=== PATIENT | male | born 1995 | race Asian ===

== ENCOUNTER 2018-02-17 12:36 | Emergency (ER) | payer MEDICAID, OTHER ==
[2018-02-17 12:54] VITALS: BP 125/82
[2018-02-17 13:36] LABS: BILIRUBIN,URINE NEGATIVE (NEGATIVE); GLUCOSE, URINE (UA) NEGATIVE (NEGATIVE); KETONES,URINE (UA) NEGATIVE (NEGATIVE); LEUKOCYTE ESTERASE, URINE NEGATIVE (NEGATIVE); NITRITE,URINE NEGATIVE (NEGATIVE); OCCULT BLOOD,URINE NEGATIVE (NEGATIVE); PROTEIN,URINE NEGATIVE (NEGATIVE); UROBILINOGEN,URINE 0.2 (NORMAL) E.U./dL (NORMAL)
[2018-02-17 13:47] LABS: CLARITY,URINE CLOUDY (CLEAR)
[2018-02-17 13:52] LABS: BACTERIA,URINE Rare /HPF (None Seen); RBC,URINE 0-5 /HPF (0-5); SQUAMOUS EPITHELIAL CELL,UR RARE Squamous (<= Few)
[2018-02-17 13:53] LABS: AMORPHOUS SEDIMENT,UR Moderate /LPF
[2018-02-17 15:10] LABS: BASOPHILS % (AUTO) 0.5 %; EOSINOPHILS # (AUTO) 0.1 10^3/uL (0.0-0.7); EOSINOPHILS % (AUTO) 1.7 %; HGB - HEMOGLOBIN 15.4 g/dL (14.0-18.0); LYMPHOCYTES # (AUTO) 2.9 10^3/uL (1.5-3.5); LYMPHOCYTES % (AUTO) 34.1 %; MEAN CORPUSCULAR HEMOGLOBIN 29.9 pg (27.0-31.0); MEAN CORPUSCULAR VOLUME 85.4 fL (80.0-94.0); MEAN PLATELET VOLUME 9.2 fL (7.4-11.4); MONOCYTES # (AUTO) 0.5 10^3/uL (0.0-1.0); MONOCYTES % (AUTO) 6.4 %; NEUTROPHILS # (AUTO) 4.8 10^3/uL (1.5-6.6); NEUTROPHILS % (AUTO) 57.3 %; PLT - PLATELET COUNT 174 10^3/uL (130-450); RED BLOOD COUNT 5.16 10^6/uL (4.70-6.10); RED CELL DISTRIBUTION WIDTH 12.3 % (12.0-15.0); WHITE BLOOD COUNT 8.4 x10^3/uL (4.8-10.8)
[2018-02-17 15:23] LABS: ALBUMIN/GLOBULIN RATIO 2.1 (1.0-2.2); BILIRUBIN,TOTAL 0.5 mg/dL (0.2-1.0); CALCIUM 9.3 mg/dL (8.5-10.3); CREATININE 0.9 mg/dL (0.6-1.2); TOTAL PROTEIN 7.4 g/dL (6.7-8.2)
== END 2018-02-17 15:22 | disposition left against medical advice (07) ==
LOC: ED 12:36
DX: Z53.21 Procedure and treatment not carried out due to patient leaving prior to being seen by health care provider (principal)
CPT/HCPCS: 36415; 80053; 81001; 81003; 83690; 85025; 87086

== ENCOUNTER 2018-02-18 08:38 | Emergency (ER) | payer MEDICAID ==
--- NOTE | 2018-02-18 10:33 | CT Report ---
Reason: RLQ pain Procedure Date: 02/18/2018 Accession Number: [id number] / [id number] Procedure: CT - Abdomen/Pelvis W/O CPT Code: FULL RESULT: EXAM: CT ABDOMEN AND PELVIS EXAM DATE: 02/18/2018 10:05 AM. CLINICAL HISTORY: RLQ pain. COMPARISONS: None. TECHNIQUE: Routine helical CT imaging was performed through the abdomen and pelvis. IV contrast: None. Enteric contrast: No. Reconstructions: Coronal and sagittal. In accordance with CT protocol optimization, one or more of the following dose reduction techniques were utilized for this exam: automated exposure control, adjustment of mA and/or KV based on patient size, or use of iterative reconstructive technique. FINDINGS: Lung Bases: Unremarkable. Liver: Normal. No masses. Gallbladder/Bile Ducts: Unremarkable. Spleen: Normal. Pancreas: Normal. Adrenal Glands: Normal. Kidneys: Normal. No masses or hydronephrosis. Peritoneal Cavity/Bowel: Normal. No free fluid, free air or adenopathy. No masses or acute inflammatory process. The appendix is well visualized and normal. Pelvic Organs: Normal. The bladder and visualized pelvic organs are within normal limits. Vasculature: No aneurysms or other significant abnormality. Bones: Bilateral pars defects at L5. Other: Multiple bilateral groin lymph nodes many of which are enlarged measuring up to 15 mm in short axis on the left and 15 mm in short axis on the right. These are seen to best advantage on the coronal views. No abdominal or pelvic lymphadenopathy. No retroperitoneal lymphadenopathy. IMPRESSION: 1. No bowel obstruction or inflammatory process associated with the bowel. 2. The appendix images normally. 3. No free air or fluid in the abdomen or pelvis. 4. There is bilateral groin lymphadenopathy with no lymphadenopathy in the abdomen, pelvis or retroperitoneum. This is of unknown clinical significance and while this may be reactive in nature, other etiologies such as lymphoma cannot be entirely excluded. Clinical correlation recommended. [facility]
[2018-02-18 12:01] VITALS: BP 114/70
--- NOTE | 2018-02-18 12:13 | ED Physician Documentation ---
History of Present Illness - History obtained from History obtained from: Patient - History of Present Illness Timing: Yesterday - Additonal information Additional information: 23-year-old previously well male has developed some right lower quadrant abdominal pain. 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 He states that work was too painful for him to continue and he went home. He did have one episode of vomiting yesterday and he also was able to eat. He denies any fever denies any diarrhea or constipation. Review of Systems Constitutional: denies: Fever, Chills, Myalgias, Fatigue, Sweats Eyes: denies: Decreased vision Ears: denies: Ear pain Nose: denies: Rhinorrhea / runny nose, Congestion Throat: denies: Sore throat Cardiac: denies: Chest pain / pressure, Palpitations Respiratory: denies: Dyspnea, Cough GI: reports: Abdominal Pain, Vomiting (once). denies: Constipation, Diarrhea : denies: Dysuria, Frequency, Hematuria, Discharge, Testicular pain, Testicular mass Skin: denies: Rash, Lesions Musculoskeletal: denies: Neck pain, Back pain, Extremity pain Neurologic: denies: Generalized weakness, Focal weakness, Numbness PD PAST MEDICAL HISTORY - Past Medical History Past Medical History: No - Past Surgical History Past Surgical History: Yes HEENT: Tonsil/Adenoidectomy - Present Medications Home Medications: Ambulatory Orders Medication Instructions Recorded Confirmed No Known Home Medications 02/09/13 02/09/13 - Allergies Allergies/Adverse Reactions: Allergies Allergy/AdvReac Type Severity Reaction Status Date / Time No Known Drug Allergies Allergy Verified 02/18/18 08:46 - Social History Does the pt smoke?: No Smoking Status: Never smoker Does the pt drink ETOH?: No Does the pt have substance abuse?: No - Immunizations Immunizations are current?: Yes Immunizations: TDAP current <10years - POLST Patient has POLST: No PD ED PE NORMAL - Vitals Vital signs reviewed: Yes (normal ) - General General: Alert and oriented X 3, No acute distress, Well developed/nourished - HEENT HEENT: Atraumatic, PERRL, EOMI - Neck Neck: Supple, no meningeal sign - Cardiac Cardiac: RRR, No murmur - Respiratory Respiratory: No respiratory distress, Clear bilaterally - Abdomen Abdomen: Soft, Other (RLQ tenderness ) - Back Back: No CVA TTP, No spinal TTP - Derm Derm: Normal color, Warm and dry, No rash - Extremities Extremities: No deformity, No edema, Other (There is non-tender shoddy adenopathy bilaterally in the inguinal area. The nodes are small firm non-tender and mobile. There are no other areas of lymphnode enlargement in the neck or axilla. 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 No bowel obstruction or inflammatory process associated with the bowel.2 The appendix images normally.3 No free air or fluid in the abdomen or pelvis. 4 There is bilateral groin lymphadenopathy with no lymphadenopathy in the abdomen, pelvis or retroperitoneum. This is of unknown clinical significance and while this may be reactive in nature, other etiology such as lymphoma cannot be entirely excluded. Clinical correlation recommended.), EMP read indepedently, See rad report PD MEDICAL DECISION MAKING - ED course Complexity details: reviewed results, re-evaluated patient, considered differential, d/w patient ED course: 23-year-old male right lower quadrant abdominal pain appears to have a muscle strain. He does work doing concrete work and I suspect this is where he may have injured his abdominal wall. He is able to move around with some mild pain and he has not had progression of pain without movement. - Sepsis Event Vital Signs: Vital Signs - 24 hr 02/18/18 02/18/18 08:43 12:00 Temperature 36.0 C L Heart Rate 80 74 Respiratory 18 12 Rate Blood Pressure 110/75 114/70 O2 Saturation 100 100 Oxygen O2 Source Room air Departure - Departure Disposition: 01 Home, Self Care Clinical Impression: Abdominal wall strain, Inguinal lymphadenopathy Condition: Stable Instructions: Lymphadenopathy, ED Strain Abdominal Muscle Follow-Up: [facility] [Provider Group] Comments: Today it appears the appendix is normal and you have been diagnosed with a strain of your abdominal wall muscle. This may take 10-14 days to improve or may be a longer cycle. In addition there was some lymphadenopathy found in the inguinal area only and this is likely reactive. These lymph nodes should recede and it is recommended that you have a reexamination done in the next month. Forms: Activity restrictions Discharge Date/Time: 02/18/18 12:48
== END 2018-02-18 12:48 | disposition home or self-care (01) ==
LOC: ED 08:38
DX: S39.011A Strain of muscle, fascia and tendon of abdomen, initial encounter (principal); R59.0 Localized enlarged lymph nodes
CPT/HCPCS: 74176; 99283

== ENCOUNTER 2018-05-12 13:48 | Emergency (ER) | payer MEDICAID, OTHER ==
[2018-05-12 13:59] VITALS: BP 135/75
[2018-05-12] MEDS ORDERED: PROPARACAINE 0.5% OPHTH DROPS 15 ML RIGHTEYE STA (14:27)
== END 2018-05-12 15:50 | disposition left against medical advice (07) ==
LOC: ED 13:48
DX: Z53.21 Procedure and treatment not carried out due to patient leaving prior to being seen by health care provider (principal)
CPT/HCPCS: 99281